=== PATIENT | male | born 1995 | race Hispanic/Latino ===

== ENCOUNTER 2016-09-16 19:06 | Emergency (ER) | payer OTHER ==
[2016-09-16 19:14] VITALS: BP 138/76; PULSE 100; RESP 18; TEMP 97.8; O2SAT 100
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
== END 2016-09-16 20:12 | disposition home or self-care (01) ==
LOC: H.ER 19:06
DX: S50.312A Abrasion of left elbow, initial encounter (principal); S50.311A Abrasion of right elbow, initial encounter; S60.512A Abrasion of left hand, initial encounter; S60.511A Abrasion of right hand, initial encounter; S80.212A Abrasion, left knee, initial encounter; S80.211A Abrasion, right knee, initial encounter; S70.212A Abrasion, left hip, initial encounter; S70.211A Abrasion, right hip, initial encounter; V29.9XXA Motorcycle rider (driver) (passenger) injured in unspecified traffic accident, initial encounter